=== PATIENT | female | born 1965 | race African-American/Black ===

== ENCOUNTER 2017-08-19 19:35 | Inpatient (IN) | payer SELFPAY ==
[~2017-08-19] VITALS: Ht 162.6 cm; Wt 95.1 kg
[~2017-08-19 19:35] MED LIST: AMLO10TA2 PO; MECL-87 PO; ONDA4TAB5
[2017-08-19] MEDS ORDERED: DILTIAZEM HCL 25 MG/5 ML VIAL IV ONE (20:00)
[2017-08-19 20:11] LABS: Basophils # (auto) 0.1 uL; Eosinophils # (auto) 0.3 uL; Eosinophils % (auto) 4.9 % (0.0-7.0); Hematocrit 35.6 % (36.0-46.0); Hemoglobin 11.6 g/dL (12.2-16.2); Lymphocytes # (auto) 2.1 uL; Lymphocytes % (auto) 35.8 % (10.0-50.0); Mean Corpuscular Hemoglobin 29.5 pg (28.0-32.0); Mean Corpuscular Hgb Conc. 32.5 g/dL (32.0-36.0); Mean Corpuscular Volume 90.7 fL (80.0-100.0); Monocytes # (auto) 0.9 uL; Monocytes % (auto) 15.2 % (0.0-12.0); Neutrophils # (auto) 2.5 uL; Neutrophils % (auto) 43.1 % (37.0-80.0); Nucleated Red Blood Cells % 0.1 %; Platelet Count (auto) 362 10^3/uL (140-450); Red Blood Cells 3.93 10^6/uL (4.0-5.20); White Blood Cell 5.8 10^3/uL (4.4-10.8)
[2017-08-19 20:36] LABS: Albumin 3.2 g/dL (3.4-5.0); BUN/Creatinine Ratio 16.5; Bilirubin, Total 0.5 mg/dL (0.2-1.0); Calcium 8.3 mg/dL (8.5-10.1); Magnesium 2.1 mg/dL (1.6-2.6); Potassium 3.7 mmol/L (3.5-5.1); Total Protein 8.5 g/dL (6.4-8.2)
[2017-08-19 20:50] LABS: Partial Thromboplastin Time 24.8 sec (22.64-33.71)
[2017-08-19 20:54] LABS: INR 0.99 (0.9-1.15); Prothrombin Time 10.8 sec (9.37-12.3)
[2017-08-19] MEDS ORDERED: LABETALOL HCL 200 MG TAB PO ONE (21:30)
[2017-08-19] MEDS ORDERED: SODIUM CHLORIDE 0.9% 1,000 ML IV ONE (21:30)
[2017-08-19] MEDS ORDERED: ENOXAPARIN SOD 40 MG/0.4 ML SYRINGE SC SCH (23:00)
[2017-08-19] MEDS ORDERED: HYDROcodone-ACET 5/325MG TAB PO PRN (23:00)
[2017-08-19] MEDS ORDERED: ONDANSETRON HCL 4 MG/2 ML VIAL IV PRN (23:00)
[2017-08-19] MEDS ORDERED: TEMAZEPAM 15 MG CAP PO PRN (23:00)
[2017-08-19] MEDS ORDERED: MORPHINE SULFATE 4 MG/ML SYR/VIAL IV PRN (23:00)
[2017-08-19] MEDS ORDERED: NITROGLYCERIN 0.4 MG SL TAB SL PRN (23:00)
[2017-08-19] MEDS ORDERED: DIGOXIN (250MCG/ML) 2 ML AMPULE IV ONE (23:15)
[2017-08-20] VITALS (19 sets, daily range): BP systolic 123–169; BP diastolic 68–101
[2017-08-20 01:38] LABS: Urine Bacteria NONE SEEN /hpf (None Seen); Urine Blood Negative /uL (Negative); Urine Specific Gravity 1.008 (1.001-1.035); Urine WBC 21 /hpf (0 - 5)
[2017-08-20 05:53] LABS: Basophils # (auto) 0 uL; Basophils % (auto) 0.5 % (0.0-2.0); Eosinophils # (auto) 0.3 uL; Eosinophils % (auto) 4.4 % (0.0-7.0); Hematocrit 33.6 % (36.0-46.0); Hemoglobin 10.7 g/dL (12.2-16.2); Lymphocytes # (auto) 2.9 uL; Lymphocytes % (auto) 41.5 % (10.0-50.0); Mean Corpuscular Hemoglobin 29.5 pg (28.0-32.0); Mean Corpuscular Hgb Conc. 31.7 g/dL (32.0-36.0); Mean Corpuscular Volume 93.1 fL (80.0-100.0); Monocytes # (auto) 0.9 uL; Monocytes % (auto) 13.4 % (0.0-12.0); Neutrophils # (auto) 2.8 uL; Neutrophils % (auto) 40.2 % (37.0-80.0); Nucleated Red Blood Cells % 0.1 %; Platelet Count (auto) 329 10^3/uL (140-450); Red Blood Cells 3.61 10^6/uL (4.0-5.20); Red Cell Distribution Width 17.8 % (11.8-14.3); White Blood Cell 6.9 10^3/uL (4.4-10.8)
[2017-08-20 06:15] LABS: Potassium 3.8 mmol/L (3.5-5.1)
[2017-08-20 06:21] LABS: Albumin 2.9 g/dL (3.4-5.0); BUN/Creatinine Ratio 18.8; Calcium 8.6 mg/dL (8.5-10.1)
[2017-08-20 06:23] LABS: Bilirubin, Total 0.5 mg/dL (0.2-1.0); Total Protein 7.6 g/dL (6.4-8.2)
[2017-08-20] MEDS ORDERED: ASPirin 81 mg TAB PO SCH (10:00)
[2017-08-20] MEDS ORDERED: DIGOXIN (250MCG/ML) 2 ML AMPULE IV ONE (11:30)
[2017-08-20] MEDS: FAMOTIDINE 20 MG TAB PO SCH ×2 (12:02→21:17)
[2017-08-20] MEDS: amLODIPine BESYLATE 5 MG TAB PO SCH (12:03)
[2017-08-20 12:33] LABS: Cholesterol 172 mg/dL (< 200); HDL Cholesterol 43 mg/dL (40-59); LDL Cholesterol 127 mg/dL (< 100); Triglycerides 112 mg/dL (< 150)
[2017-08-20] MEDS ORDERED: LIDOCAINE 1% (LOCAL ANESTH.) PF 5ml SDV ID ONE (13:15)
[2017-08-20] MEDS ORDERED: AMIODARONE HCL 900 MG in DEXTROSE 500 ML IV SCH ×2 (13:58→19:58)
[2017-08-20] MEDS ORDERED: AMIODARONE HCL 150 MG in D5W 5% 100 ML IV ONE (14:00)
[2017-08-20] MEDS: APIXABAN 5 MG TAB PO SCH ×2 (14:08→21:17)
[2017-08-20] MEDS: SODIUM CHLOR 0.9% PF (SALINE LOCK) 10ML VIAL IV SCH (22:00)
[2017-08-21] VITALS: BP 130/81
[2017-08-21 04:00] VITALS: BP 137/79
[2017-08-21] MEDS: SODIUM CHLOR 0.9% PF (SALINE LOCK) 10ML VIAL IV SCH ×2 (10:00→21:31)
[2017-08-21] MEDS ORDERED: APIXABAN 5 MG TAB PO SCH (10:00)
[2017-08-21] MEDS ORDERED: AMIODARONE HCL 200 MG TAB PO SCH (10:00)
[2017-08-21] MEDS: amLODIPine BESYLATE 5 MG TAB PO SCH (10:38)
[2017-08-21] MEDS: FAMOTIDINE 20 MG TAB PO SCH ×2 (10:38→21:31)
[2017-08-21] MEDS: APIXABAN 5 MG TAB PO SCH ×2 (10:38→21:31)
[2017-08-21] MEDS: ACETAMINOPHEN 325 MG TAB PO PRN ×2 (10:50→21:40)
[2017-08-21 11:50] VITALS: BP 170/84
[2017-08-21] MEDS ORDERED: POTASSIUM CHL 20 Meq TABLET PO ONE (12:30)
[2017-08-21 12:52] LABS: BUN/Creatinine Ratio 10.8; Calcium 8.4 mg/dL (8.5-10.1)
[2017-08-21 12:54] LABS: Alcohol, Urine < 3.0 mg/dL (0-5); Amphetamine Screen, Urine NEGATIVE (NEGATIVE); Barbiturate Scree,Urine NEGATIVE (NEGATIVE); Benzodiazephine Screen, Urine NEGATIVE (NEGATIVE); Cannabinoid Screen, Urine NEGATIVE (NEGATIVE); Cocaine Screen, Urine NEGATIVE (NEGATIVE); Opiate Scree,Urine NEGATIVE (NEGATIVE); Phencyclidine Screen, Urine NEGATIVE (NEGATIVE)
[2017-08-21 16:02] VITALS: BP 149/85
[2017-08-21 20:00] VITALS: BP 146/91
[2017-08-21] MEDS ORDERED: AMIODARONE HCL 900 MG in DEXTROSE 500 ML IV SCH (23:22)
[2017-08-22] VITALS: BP 123/73
[2017-08-22 03:51] VITALS: BP 146/86
[2017-08-22 05:04] LABS: Basophils # (auto) 0.1 uL; Basophils % (auto) 1.6 % (0.0-2.0); Eosinophils # (auto) 0.4 uL; Eosinophils % (auto) 5.4 % (0.0-7.0); Hematocrit 35.6 % (36.0-46.0); Hemoglobin 11.5 g/dL (12.2-16.2); Lymphocytes # (auto) 2.7 uL; Lymphocytes % (auto) 33.5 % (10.0-50.0); Mean Corpuscular Hemoglobin 29.5 pg (28.0-32.0); Mean Corpuscular Hgb Conc. 32.2 g/dL (32.0-36.0); Mean Corpuscular Volume 91.7 fL (80.0-100.0); Monocytes # (auto) 0.7 uL; Monocytes % (auto) 9.2 % (0.0-12.0); Neutrophils # (auto) 4.1 uL; Neutrophils % (auto) 50.3 % (37.0-80.0); Nucleated Red Blood Cells % 0.2 %; Platelet Count (auto) 305 10^3/uL (140-450); Red Blood Cells 3.88 10^6/uL (4.0-5.20); Red Cell Distribution Width 17.5 % (11.8-14.3); White Blood Cell 8.1 10^3/uL (4.4-10.8)
[2017-08-22 05:17] LABS: BUN/Creatinine Ratio 13.5; Calcium 8.3 mg/dL (8.5-10.1); Potassium 3.8 mmol/L (3.5-5.1)
[2017-08-22] MEDS: APIXABAN 5 MG TAB PO SCH (07:32)
[2017-08-22 08:00] VITALS: BP 168/94
[2017-08-22] MEDS ORDERED: MIDAZOLAM HCL 5 MG/ML-1ML VIAL IV PRN (08:00)
[2017-08-22] MEDS ORDERED: fentaNYL CITRATE 100 MCG/2 ML VL IV PRN (08:00)
[2017-08-22] MEDS: amLODIPine BESYLATE 5 MG TAB PO SCH (09:47)
[2017-08-22] MEDS: FAMOTIDINE 20 MG TAB PO SCH (09:47)
[2017-08-22] MEDS: SODIUM CHLOR 0.9% PF (SALINE LOCK) 10ML VIAL IV SCH (10:00)
[2017-08-22 12:00] VITALS: BP 137/59
[2017-08-22 15:54] VITALS: BP 145/94
[2017-08-22 16:00] VITALS: BP 145/94
== END 2017-08-22 16:25 | disposition home or self-care (01) | DRG 281 ==
LOC: ER 19:35 → EDBD 19:35 → EDSEX 19:35 → OVERFLOW 19:36 → DOU IN ICU 23:26
PROVIDERS: ADMIT Nurse Practitioner; ATTEND Family Medicine
DX: I21.A1 Myocardial infarction type 2 (principal); I48.92 Unspecified atrial flutter; I11.0 Hypertensive heart disease with heart failure; I27.20 Pulmonary hypertension, unspecified; E03.9 Hypothyroidism, unspecified; E05.90 Thyrotoxicosis, unspecified without thyrotoxic crisis or storm; I48.91 Unspecified atrial fibrillation; Z79.01 Long term (current) use of anticoagulants
CPT/HCPCS: 36415; 36569; 71045; 80048; 80053; 80061; 80307; 81001; 83735; 83880; 84443; 84484; 85025; 85610; 85730; 87081; 93005; 93306; 94761; 96361; 96372; 96374; 96375; J7060

== ENCOUNTER 2017-12-28 11:26 | Inpatient (IN) | payer MEDICAID ==
[~2017-12-28] VITALS: Ht 162.6 cm; Wt 90.8 kg
[~2017-12-28 11:26] MED LIST changes: +AMIO200T33 PO; -AMLO10TA2 PO; -MECL-87 PO; +MET25T PO; -ONDA4TAB5
[2017-12-28 12:35] LABS: Basophils # (auto) 0 uL; Eosinophils # (auto) 0.1 uL; Hemoglobin 9.9 g/dL (12.2-16.2); Nucleated Red Blood Cells % 0.2 %
[2017-12-28 12:38] LABS: Basophils % (auto) 0.6 % (0.0-2.0); Eosinophils % (auto) 0.9 % (0.0-7.0); Hematocrit 31.7 % (36.0-46.0); Lymphocytes # (auto) 1.4 uL; Lymphocytes % (auto) 18.6 % (10.0-50.0); Mean Corpuscular Hemoglobin 24.9 pg (28.0-32.0); Mean Corpuscular Hgb Conc. 31.2 g/dL (32.0-36.0); Mean Corpuscular Volume 79.9 fL (80.0-100.0); Monocytes # (auto) 0.8 uL; Monocytes % (auto) 11.5 % (0.0-12.0); Neutrophils % (auto) 68.4 % (37.0-80.0); Platelet Count (auto) 279 10^3/uL (140-450); Red Blood Cells 3.97 10^6/uL (4.0-5.20); Red Cell Distribution Width 19.2 % (11.8-14.3); White Blood Cell 7.3 10^3/uL (4.4-10.8)
[2017-12-28 12:42] LABS: Albumin 3.2 g/dL (3.4-5.0); BUN/Creatinine Ratio 10.2; Calcium 8.6 mg/dL (8.5-10.1); Potassium 4.3 mmol/L (3.5-5.1)
[2017-12-28 12:45] LABS: Bilirubin, Total 1.2 mg/dL (0.2-1.0); Total Protein 8.7 g/dL (6.4-8.2)
[2017-12-28 14:20] LABS: Magnesium 2.1 mg/dL (1.6-2.6)
[2017-12-28] MEDS ORDERED: ENOXAPARIN SOD 100 MG/1 ML SYRINGE SC ONE (15:00)
[2017-12-28 15:13] LABS: INR 1.09 (0.9-1.15); Partial Thromboplastin Time 24.7 sec (23.78-33.04); Prothrombin Time 11.6 sec (9.27-12.13)
[2017-12-28] MEDS ORDERED: MORPHINE SULF INJ 2 MG/ML SYRINGE 1ML IV PRN ×2 (15:15)
[2017-12-28] MEDS ORDERED: LORazepam 0.5 MG TAB PO PRN (15:15)
[2017-12-28] MEDS ORDERED: TEMAZEPAM 15 MG CAP PO PRN (15:15)
[2017-12-28] MEDS ORDERED: PROMETHAZINE HCL 25 MG/ML 1ML IV PRN (15:15)
[2017-12-28] MEDS ORDERED: NITROGLYCERIN 0.4 MG SL TAB SL PRN (15:15)
[2017-12-28] MEDS: PANTOPRAZOLE 40 MG TAB PO SCH (15:28)
[2017-12-28] MEDS ORDERED: PNEUMOCOCCAL VACC POLYS 25 MCG/0.5 ML VIAL IM ONE (17:45)
[2017-12-28 21:21] LABS: Urine Bacteria NONE SEEN /hpf (None Seen); Urine Blood 3+ /uL (Negative); Urine Mucus FEW (None Seen); Urine Specific Gravity 1.021 (1.001-1.035); Urine WBC 6 /hpf (0 - 5)
[2017-12-28] MEDS: traMADol HCL 50 MG TAB PO PRN (21:29)
[2017-12-28] MEDS: ENOXAPARIN SOD 100 MG/1 ML SYRINGE SC SCH (21:29)
[2017-12-28 21:41] VITALS: BP 146/78
[2017-12-29] VITALS (27 sets, daily range): BP systolic 111–160; BP diastolic 62–87
[2017-12-29] MEDS: traMADol HCL 50 MG TAB PO PRN (04:29)
[2017-12-29 07:10] LABS: Basophils # (auto) 0 uL; Eosinophils # (auto) 0.1 uL; Lymphocytes # (auto) 2.1 uL; Monocytes % (auto) 13.9 % (0.0-12.0); Nucleated Red Blood Cells % 0.2 %; Red Blood Cells 3.81 10^6/uL (4.0-5.20)
[2017-12-29 07:14] LABS: Basophils % (auto) 0.7 % (0.0-2.0); Eosinophils % (auto) 1.5 % (0.0-7.0); Hematocrit 30.4 % (36.0-46.0); Hemoglobin 9.7 g/dL (12.2-16.2); Lymphocytes % (auto) 27.7 % (10.0-50.0); Mean Corpuscular Hemoglobin 25.5 pg (28.0-32.0); Mean Corpuscular Hgb Conc. 31.9 g/dL (32.0-36.0); Mean Corpuscular Volume 79.8 fL (80.0-100.0); Neutrophils # (auto) 4.2 uL; Neutrophils % (auto) 56.2 % (37.0-80.0); Platelet Count (auto) 261 10^3/uL (140-450); Red Cell Distribution Width 19.5 % (11.8-14.3); White Blood Cell 7.5 10^3/uL (4.4-10.8)
[2017-12-29 07:29] LABS: BUN/Creatinine Ratio 11.6; Bilirubin, Total 1.3 mg/dL (0.2-1.0); Calcium 8.4 mg/dL (8.5-10.1); Potassium 4.1 mmol/L (3.5-5.1); Total Protein 8.2 g/dL (6.4-8.2)
[2017-12-29] MEDS: PANTOPRAZOLE 40 MG TAB PO SCH (10:28)
[2017-12-29] MEDS: ENOXAPARIN SOD 100 MG/1 ML SYRINGE SC SCH (10:28)
[2017-12-29] MEDS ORDERED: HEPARIN SODIUM (PORCINE) 5000 UNITS/ML 1ML VIAL IV ONE (14:45)
[2017-12-29] MEDS ORDERED: IOHEXOL 350 MG/ML 100ML IJ ONE (14:57)
[2017-12-29] MEDS ORDERED: METOPROLOL TARTRATE 25 MG TAB PO SCH (15:00)
[2017-12-29] MEDS ORDERED: AMIODARONE HCL 200 MG TAB PO SCH (15:00)
[2017-12-29] MEDS ORDERED: AMIODARONE HCL 200 MG TAB PO ONE (15:15)
[2017-12-29] MEDS ORDERED: METOPROLOL TARTRATE 25 MG TAB PO ONE (15:15)
[2017-12-29 15:29] LABS: Eosinophils # (auto) 0.1 uL; Hemoglobin 9.6 g/dL (12.2-16.2); Lymphocytes % (auto) 26.8 % (10.0-50.0); Monocytes # (auto) 1.1 uL
[2017-12-29 15:33] LABS: Basophils # (auto) 0 uL; Basophils % (auto) 0.6 % (0.0-2.0); Eosinophils % (auto) 1.3 % (0.0-7.0); Hematocrit 29.8 % (36.0-46.0); Lymphocytes # (auto) 2.1 uL; Mean Corpuscular Hemoglobin 25.7 pg (28.0-32.0); Mean Corpuscular Hgb Conc. 32.3 g/dL (32.0-36.0); Mean Corpuscular Volume 79.7 fL (80.0-100.0); Monocytes % (auto) 14.1 % (0.0-12.0); Neutrophils # (auto) 4.4 uL; Neutrophils % (auto) 57.2 % (37.0-80.0); Nucleated Red Blood Cells % 0.5 %; Platelet Count (auto) 290 10^3/uL (140-450); Red Blood Cells 3.75 10^6/uL (4.0-5.20); Red Cell Distribution Width 19.3 % (11.8-14.3); White Blood Cell 7.7 10^3/uL (4.4-10.8)
[2017-12-29] MEDS: HEPARIN DRIP/D5W 100UNITS/ML 250 ML IV SCH (15:33)
[2017-12-29 15:41] LABS: INR 1.07 (0.9-1.15); Partial Thromboplastin Time 30.6 sec (23.78-33.04); Prothrombin Time 11.4 sec (9.27-12.13)
[2017-12-29] MEDS ORDERED: WARFARIN SODIUM 5 MG TAB PO ONE (17:00)
[2017-12-29 19:22] LABS: Basophils # (auto) 0 uL; Basophils % (auto) 0.5 % (0.0-2.0); Eosinophils # (auto) 0.1 uL; Eosinophils % (auto) 1.5 % (0.0-7.0); Hemoglobin 9.2 g/dL (12.2-16.2); Lymphocytes # (auto) 2.1 uL; Lymphocytes % (auto) 24.4 % (10.0-50.0); Mean Corpuscular Hemoglobin 25.4 pg (28.0-32.0); Mean Corpuscular Hgb Conc. 31.7 g/dL (32.0-36.0); Mean Corpuscular Volume 80.3 fL (80.0-100.0); Monocytes % (auto) 12.1 % (0.0-12.0); Neutrophils # (auto) 5.3 uL; Neutrophils % (auto) 61.5 % (37.0-80.0); Nucleated Red Blood Cells % 0.2 %; Platelet Count (auto) 258 10^3/uL (140-450); Red Blood Cells 3.61 10^6/uL (4.0-5.20); Red Cell Distribution Width 19.1 % (11.8-14.3); White Blood Cell 8.5 10^3/uL (4.4-10.8)
[2017-12-29 22:37] LABS: INR 1.09 (0.9-1.15); Partial Thromboplastin Time 85.6 sec (23.78-33.04); Prothrombin Time 11.6 sec (9.27-12.13)
[2017-12-30] VITALS (44 sets, daily range): BP systolic 91–143; BP diastolic 46–77
[2017-12-30 03:57] LABS: Eosinophils # (auto) 0.1 uL; Eosinophils % (auto) 1.7 % (0.0-7.0); Hemoglobin 9.2 g/dL (12.2-16.2); Neutrophils # (auto) 4.3 uL; White Blood Cell 8.2 10^3/uL (4.4-10.8)
[2017-12-30 03:59] LABS: Basophils # (auto) 0.1 uL; Basophils % (auto) 0.7 % (0.0-2.0); Hematocrit 29.6 % (36.0-46.0); Lymphocytes # (auto) 2.7 uL; Lymphocytes % (auto) 32.8 % (10.0-50.0); Mean Corpuscular Hgb Conc. 31.2 g/dL (32.0-36.0); Monocytes % (auto) 11.9 % (0.0-12.0); Neutrophils % (auto) 52.9 % (37.0-80.0); Nucleated Red Blood Cells % 0.2 %; Platelet Count (auto) 280 10^3/uL (140-450); Red Cell Distribution Width 19.3 % (11.8-14.3)
[2017-12-30 04:14] LABS: INR 1.08 (0.9-1.15); Prothrombin Time 11.5 sec (9.27-12.13)
[2017-12-30 04:19] LABS: Partial Thromboplastin Time 103.2 sec (23.78-33.04)
[2017-12-30] MEDS: HEPARIN DRIP/D5W 100UNITS/ML 250 ML IV SCH (06:30)
[2017-12-30 09:51] LABS: INR 1.07 (0.9-1.15); Partial Thromboplastin Time 68.6 sec (23.78-33.04); Prothrombin Time 11.4 sec (9.27-12.13)
[2017-12-30] MEDS: PANTOPRAZOLE 40 MG TAB PO SCH (10:00)
[2017-12-30] MEDS: AMIODARONE HCL 200 MG TAB PO SCH ×2 (10:00→22:00)
[2017-12-30] MEDS: METOPROLOL TARTRATE 25 MG TAB PO SCH ×2 (10:00→22:00)
[2017-12-30] MEDS ORDERED: IODIXANOL 320MG/ML 100ML BTL IV ONE (10:50)
[2017-12-30] MEDS ORDERED: LIDOCAINE 2%HCL (LOCAL ANESTH.) INJ 10ml MDV ONE (10:50)
[2017-12-30] MEDS ORDERED: fentaNYL CITRATE 100 MCG/2 ML VL ONE (10:53)
[2017-12-30] MEDS ORDERED: MIDAZOLAM HCL 1MG/1ML-2 ML VIAL ONE (10:53)
[2017-12-30 15:28] LABS: Basophils # (auto) 0.1 uL; Lymphocytes # (auto) 1.8 uL
[2017-12-30 15:31] LABS: Basophils % (auto) 1.2 % (0.0-2.0); Eosinophils # (auto) 0.2 uL; Eosinophils % (auto) 2.5 % (0.0-7.0); Hematocrit 30.1 % (36.0-46.0); Hemoglobin 9.6 g/dL (12.2-16.2); Lymphocytes % (auto) 25.7 % (10.0-50.0); Mean Corpuscular Hemoglobin 25.8 pg (28.0-32.0); Mean Corpuscular Hgb Conc. 31.8 g/dL (32.0-36.0); Mean Corpuscular Volume 80.9 fL (80.0-100.0); Monocytes # (auto) 0.8 uL; Monocytes % (auto) 12.1 % (0.0-12.0); Neutrophils % (auto) 58.5 % (37.0-80.0); Nucleated Red Blood Cells % 0.3 %; Platelet Count (auto) 298 10^3/uL (140-450); Red Blood Cells 3.72 10^6/uL (4.0-5.20); White Blood Cell 6.8 10^3/uL (4.4-10.8)
[2017-12-30 15:47] LABS: INR 1.07 (0.9-1.15); Partial Thromboplastin Time 63.9 sec (23.78-33.04); Prothrombin Time 11.4 sec (9.27-12.13)
[2017-12-30 22:30] LABS: INR 1.07 (0.9-1.15); Partial Thromboplastin Time 63.2 sec (23.78-33.04); Prothrombin Time 11.4 sec (9.27-12.13)
[2017-12-30 22:36] LABS: Neutrophils # (auto) 4.3 uL; Nucleated Red Blood Cells % 0.3 %; Red Cell Distribution Width 19.4 % (11.8-14.3)
[2017-12-30 22:38] LABS: Basophils # (auto) 0 uL; Basophils % (auto) 0.7 % (0.0-2.0); Eosinophils # (auto) 0.2 uL; Eosinophils % (auto) 2.7 % (0.0-7.0); Hematocrit 28.5 % (36.0-46.0); Lymphocytes # (auto) 1.9 uL; Lymphocytes % (auto) 26.6 % (10.0-50.0); Mean Corpuscular Hemoglobin 25.5 pg (28.0-32.0); Mean Corpuscular Hgb Conc. 31.6 g/dL (32.0-36.0); Mean Corpuscular Volume 80.7 fL (80.0-100.0); Monocytes # (auto) 0.9 uL; Monocytes % (auto) 11.7 % (0.0-12.0); Neutrophils % (auto) 58.3 % (37.0-80.0); Platelet Count (auto) 302 10^3/uL (140-450); Red Blood Cells 3.53 10^6/uL (4.0-5.20); White Blood Cell 7.3 10^3/uL (4.4-10.8)
[2017-12-31] VITALS (23 sets, daily range): BP systolic 112–152; BP diastolic 64–81
[2017-12-31] MEDS: HEPARIN DRIP/D5W 100UNITS/ML 250 ML IV SCH ×2 (02:58→10:40)
[2017-12-31 03:40] LABS: Eosinophils # (auto) 0.2 uL; Hemoglobin 9.1 g/dL (12.2-16.2); Monocytes # (auto) 0.8 uL
[2017-12-31 03:43] LABS: Basophils # (auto) 0.1 uL; Basophils % (auto) 0.7 % (0.0-2.0); Eosinophils % (auto) 2.6 % (0.0-7.0); Hematocrit 28.8 % (36.0-46.0); Lymphocytes # (auto) 2.4 uL; Lymphocytes % (auto) 31.7 % (10.0-50.0); Mean Corpuscular Hemoglobin 25.2 pg (28.0-32.0); Mean Corpuscular Hgb Conc. 31.5 g/dL (32.0-36.0); Mean Corpuscular Volume 80.1 fL (80.0-100.0); Monocytes % (auto) 10.4 % (0.0-12.0); Neutrophils # (auto) 4.1 uL; Neutrophils % (auto) 54.6 % (37.0-80.0); Nucleated Red Blood Cells % 0.4 %; Platelet Count (auto) 297 10^3/uL (140-450); Red Blood Cells 3.59 10^6/uL (4.0-5.20); White Blood Cell 7.5 10^3/uL (4.4-10.8)
[2017-12-31 04:00] LABS: BUN/Creatinine Ratio 12.5; Calcium 8.2 mg/dL (8.5-10.1); Magnesium 2.1 mg/dL (1.6-2.6); Potassium 3.6 mmol/L (3.5-5.1)
[2017-12-31 04:13] LABS: % Iron Saturation 5.3 % (15-50)
[2017-12-31 08:43] LABS: INR 1.07 (0.9-1.15); Partial Thromboplastin Time 67.5 sec (23.78-33.04); Prothrombin Time 11.4 sec (9.27-12.13)
[2017-12-31] MEDS: METOPROLOL TARTRATE 25 MG TAB PO SCH ×2 (09:31→22:17)
[2017-12-31] MEDS: PANTOPRAZOLE 40 MG TAB PO SCH (09:31)
[2017-12-31] MEDS: AMIODARONE HCL 200 MG TAB PO SCH ×2 (09:32→22:18)
[2017-12-31] MEDS: SODIUM FERR GLUC 62.5MG/5ML 125 MG in SODIUM CHL 0.9% 100 ML IV SCH (11:47)
[2017-12-31 12:03] LABS: Basophils # (auto) 0.1 uL; Basophils % (auto) 0.9 % (0.0-2.0); Eosinophils # (auto) 0.2 uL; Eosinophils % (auto) 2.4 % (0.0-7.0); Hemoglobin 8.9 g/dL (12.2-16.2); Lymphocytes # (auto) 1.6 uL; Lymphocytes % (auto) 22.9 % (10.0-50.0); Mean Corpuscular Hemoglobin 25.6 pg (28.0-32.0); Mean Corpuscular Hgb Conc. 31.7 g/dL (32.0-36.0); Mean Corpuscular Volume 80.7 fL (80.0-100.0); Monocytes # (auto) 0.9 uL; Monocytes % (auto) 13.1 % (0.0-12.0); Neutrophils # (auto) 4.3 uL; Neutrophils % (auto) 60.7 % (37.0-80.0); Nucleated Red Blood Cells % 0.2 %; Platelet Count (auto) 287 10^3/uL (140-450); Red Blood Cells 3.47 10^6/uL (4.0-5.20); Red Cell Distribution Width 19.4 % (11.8-14.3); White Blood Cell 7.1 10^3/uL (4.4-10.8)
[2018-01-01] VITALS (18 sets, daily range): BP systolic 98–140; BP diastolic 56–77
[2018-01-01] MEDS: HEPARIN DRIP/D5W 100UNITS/ML 250 ML IV SCH ×3 (01:23→20:23)
[2018-01-01 03:44] LABS: Basophils # (auto) 0.1 uL; Eosinophils # (auto) 0.2 uL; Mean Corpuscular Hgb Conc. 31.2 g/dL (32.0-36.0); Red Blood Cells 3.48 10^6/uL (4.0-5.20)
[2018-01-01 03:46] LABS: Basophils % (auto) 0.9 % (0.0-2.0); Eosinophils % (auto) 2.6 % (0.0-7.0); Hemoglobin 8.7 g/dL (12.2-16.2); Lymphocytes # (auto) 2.4 uL; Lymphocytes % (auto) 32.2 % (10.0-50.0); Mean Corpuscular Hemoglobin 25.1 pg (28.0-32.0); Mean Corpuscular Volume 80.7 fL (80.0-100.0); Monocytes # (auto) 0.8 uL; Monocytes % (auto) 10.7 % (0.0-12.0); Neutrophils # (auto) 4.1 uL; Neutrophils % (auto) 53.6 % (37.0-80.0); Platelet Count (auto) 310 10^3/uL (140-450); Red Cell Distribution Width 19.8 % (11.8-14.3); White Blood Cell 7.6 10^3/uL (4.4-10.8)
[2018-01-01 04:06] LABS: INR 1.07 (0.9-1.15); Prothrombin Time 11.4 sec (9.27-12.13)
[2018-01-01 04:21] LABS: Partial Thromboplastin Time 77.7 sec (23.78-33.04)
[2018-01-01 09:47] LABS: INR 1.07 (0.9-1.15); Partial Thromboplastin Time 42.8 sec (23.78-33.04); Prothrombin Time 11.4 sec (9.27-12.13)
[2018-01-01] MEDS: AMIODARONE HCL 200 MG TAB PO SCH ×2 (10:06→21:55)
[2018-01-01] MEDS: PANTOPRAZOLE 40 MG TAB PO SCH (10:07)
[2018-01-01] MEDS: METOPROLOL TARTRATE 25 MG TAB PO SCH ×2 (10:07→21:55)
[2018-01-01] MEDS: SODIUM FERR GLUC 62.5MG/5ML 125 MG in SODIUM CHL 0.9% 100 ML IV SCH (13:34)
[2018-01-01 15:11] LABS: INR 1.07 (0.9-1.15); Prothrombin Time 11.4 sec (9.27-12.13)
[2018-01-01 15:21] LABS: Partial Thromboplastin Time 94.2 sec (23.78-33.04)
[2018-01-01 22:48] LABS: INR 1.05 (0.9-1.15); Partial Thromboplastin Time 31.3 sec (23.78-33.04); Prothrombin Time 11.2 sec (9.27-12.13)
[2018-01-01] MEDS ORDERED: HEPARIN SODIUM (PORCINE) 5000 UNITS/ML 1ML VIAL IV ONE (23:15)
[2018-01-02 05:00] VITALS: BP 105/67
[2018-01-02 05:54] LABS: Basophils # (auto) 0.1 uL; Eosinophils # (auto) 0.2 uL; Hemoglobin 8.9 g/dL (12.2-16.2); Monocytes # (auto) 0.8 uL; Red Cell Distribution Width 19.9 % (11.8-14.3)
[2018-01-02 05:57] LABS: Basophils % (auto) 0.8 % (0.0-2.0); Eosinophils % (auto) 2.6 % (0.0-7.0); Hematocrit 28.3 % (36.0-46.0); Lymphocytes % (auto) 25.8 % (10.0-50.0); Mean Corpuscular Hemoglobin 25.7 pg (28.0-32.0); Mean Corpuscular Hgb Conc. 31.4 g/dL (32.0-36.0); Mean Corpuscular Volume 81.7 fL (80.0-100.0); Monocytes % (auto) 10.7 % (0.0-12.0); Neutrophils # (auto) 4.6 uL; Neutrophils % (auto) 60.1 % (37.0-80.0); Nucleated Red Blood Cells % 2.5 %; Platelet Count (auto) 320 10^3/uL (140-450); Red Blood Cells 3.46 10^6/uL (4.0-5.20); White Blood Cell 7.7 10^3/uL (4.4-10.8)
[2018-01-02 06:22] LABS: INR 1.08 (0.9-1.15); Prothrombin Time 11.5 sec (9.27-12.13)
[2018-01-02 06:26] LABS: Partial Thromboplastin Time 107.8 sec (23.78-33.04)
[2018-01-02 08:00] VITALS: BP 108/65
[2018-01-02] MEDS: PANTOPRAZOLE 40 MG TAB PO SCH (09:15)
[2018-01-02] MEDS: AMIODARONE HCL 200 MG TAB PO SCH ×2 (10:00→21:36)
[2018-01-02] MEDS: METOPROLOL TARTRATE 25 MG TAB PO SCH ×2 (10:00→21:36)
[2018-01-02 12:00] VITALS: BP 101/61
[2018-01-02 12:44] LABS: INR 1.08 (0.9-1.15); Prothrombin Time 11.5 sec (9.27-12.13)
[2018-01-02] MEDS: SODIUM FERR GLUC 62.5MG/5ML 125 MG in SODIUM CHL 0.9% 100 ML IV SCH (13:57)
[2018-01-02 16:00] VITALS: BP 118/62
[2018-01-02] MEDS ORDERED: WARFARIN SODIUM 2.5 MG TAB PO ONE (17:00)
[2018-01-02 22:00] VITALS: BP 109/60
[2018-01-03 04:43] VITALS: BP 106/60
[2018-01-03 07:38] LABS: Basophils # (auto) 0 uL; Hematocrit 27.1 % (36.0-46.0); Lymphocytes # (auto) 1.2 uL; Mean Corpuscular Volume 81.7 fL (80.0-100.0); Neutrophils # (auto) 5.2 uL; Neutrophils % (auto) 70.4 % (37.0-80.0); Red Blood Cells 3.32 10^6/uL (4.0-5.20); Red Cell Distribution Width 19.2 % (11.8-14.3); White Blood Cell 7.4 10^3/uL (4.4-10.8)
[2018-01-03 07:40] LABS: Basophils % (auto) 0.7 % (0.0-2.0); Eosinophils # (auto) 0.1 uL; Eosinophils % (auto) 1.7 % (0.0-7.0); Hemoglobin 8.8 g/dL (12.2-16.2); Lymphocytes % (auto) 15.8 % (10.0-50.0); Mean Corpuscular Hemoglobin 26.4 pg (28.0-32.0); Mean Corpuscular Hgb Conc. 32.3 g/dL (32.0-36.0); Monocytes # (auto) 0.8 uL; Monocytes % (auto) 11.4 % (0.0-12.0); Platelet Count (auto) 308 10^3/uL (140-450)
[2018-01-03 07:51] LABS: INR 1.07 (0.9-1.15); Prothrombin Time 11.4 sec (9.27-12.13)
[2018-01-03 07:58] LABS: BUN/Creatinine Ratio 9.5; Calcium 8.2 mg/dL (8.5-10.1); Magnesium 2.5 mg/dL (1.6-2.6)
[2018-01-03] MEDS: traMADol HCL 50 MG TAB PO PRN (08:30)
[2018-01-03 09:00] VITALS: BP 117/65
[2018-01-03] MEDS: PANTOPRAZOLE 40 MG TAB PO SCH (09:43)
[2018-01-03] MEDS: AMIODARONE HCL 200 MG TAB PO SCH ×2 (09:43→21:39)
[2018-01-03] MEDS: METOPROLOL TARTRATE 25 MG TAB PO SCH ×2 (09:46→21:39)
[2018-01-03 13:40] VITALS: BP 143/78
[2018-01-03] MEDS: SODIUM FERR GLUC 62.5MG/5ML 125 MG in SODIUM CHL 0.9% 100 ML IV SCH (14:32)
[2018-01-03 17:00] VITALS: BP 130/78
[2018-01-03] MEDS ORDERED: WARFARIN SODIUM 2.5 MG TAB PO ONE (17:00)
[2018-01-03] MEDS: ACETAMINOPHEN 500 MG TAB PO PRN (21:45)
[2018-01-03 22:00] VITALS: BP 127/77
[2018-01-04 05:00] VITALS: BP 109/52
[2018-01-04 08:00] VITALS: BP 104/48
[2018-01-04 08:00] LABS: Basophils # (auto) 0.1 uL; Eosinophils # (auto) 0.1 uL; Nucleated Red Blood Cells % 1.6 %
[2018-01-04 08:03] LABS: Basophils % (auto) 0.8 % (0.0-2.0); Eosinophils % (auto) 1.5 % (0.0-7.0); Hematocrit 27.4 % (36.0-46.0); Hemoglobin 8.5 g/dL (12.2-16.2); Lymphocytes # (auto) 1.4 uL; Lymphocytes % (auto) 19.5 % (10.0-50.0); Mean Corpuscular Hemoglobin 25.7 pg (28.0-32.0); Mean Corpuscular Hgb Conc. 31.1 g/dL (32.0-36.0); Mean Corpuscular Volume 82.8 fL (80.0-100.0); Monocytes # (auto) 1.2 uL; Monocytes % (auto) 16.8 % (0.0-12.0); Neutrophils # (auto) 4.5 uL; Neutrophils % (auto) 61.4 % (37.0-80.0); Platelet Count (auto) 289 10^3/uL (140-450); Red Blood Cells 3.31 10^6/uL (4.0-5.20); White Blood Cell 7.4 10^3/uL (4.4-10.8)
[2018-01-04 08:06] LABS: INR 1.3 (0.9-1.15); Prothrombin Time 13.7 sec (9.27-12.13)
[2018-01-04] MEDS: ACETAMINOPHEN 500 MG TAB PO PRN (08:20)
[2018-01-04] MEDS: PANTOPRAZOLE 40 MG TAB PO SCH (10:00)
[2018-01-04] MEDS: METOPROLOL TARTRATE 25 MG TAB PO SCH ×2 (10:44→22:56)
[2018-01-04] MEDS: AMIODARONE HCL 200 MG TAB PO SCH ×2 (10:44→22:56)
[2018-01-04] MEDS: traMADol HCL 50 MG TAB PO PRN (10:50)
[2018-01-04] MEDS ORDERED: HEPARIN DRIP/D5W 100UNITS/ML 250 ML IV SCH ×2 (12:30→19:15)
[2018-01-04 12:34] VITALS: BP 114/65
[2018-01-04] MEDS: SODIUM FERR GLUC 62.5MG/5ML 125 MG in SODIUM CHL 0.9% 100 ML IV SCH (13:16)
[2018-01-04 14:04] LABS: INR 1.49 (0.9-1.15); Prothrombin Time 15.6 sec (9.27-12.13)
[2018-01-04 16:37] VITALS: BP 117/76
[2018-01-04] MEDS ORDERED: WARFARIN SODIUM 2.5 MG TAB PO ONE (17:00)
[2018-01-04 18:26] LABS: INR 1.56 (0.9-1.15); Prothrombin Time 16.3 sec (9.27-12.13)
[2018-01-04 18:37] LABS: Partial Thromboplastin Time 79.4 sec (23.78-33.04)
[2018-01-04 22:00] VITALS: BP 124/68
[2018-01-05 05:00] VITALS: BP 119/68
[2018-01-05 05:56] LABS: Eosinophils # (auto) 0.1 uL; Hemoglobin 8.9 g/dL (12.2-16.2); Neutrophils # (auto) 6.3 uL
[2018-01-05 05:57] LABS: Basophils # (auto) 0.1 uL; Basophils % (auto) 0.5 % (0.0-2.0); Eosinophils % (auto) 0.9 % (0.0-7.0); Hematocrit 28.1 % (36.0-46.0); Lymphocytes # (auto) 1.8 uL; Lymphocytes % (auto) 19.1 % (10.0-50.0); Mean Corpuscular Hemoglobin 26.8 pg (28.0-32.0); Mean Corpuscular Hgb Conc. 31.7 g/dL (32.0-36.0); Mean Corpuscular Volume 84.6 fL (80.0-100.0); Monocytes # (auto) 1.3 uL; Monocytes % (auto) 13.8 % (0.0-12.0); Neutrophils % (auto) 65.7 % (37.0-80.0); Nucleated Red Blood Cells % 1.5 %; Platelet Count (auto) 282 10^3/uL (140-450); Red Blood Cells 3.33 10^6/uL (4.0-5.20); White Blood Cell 9.7 10^3/uL (4.4-10.8)
[2018-01-05 06:02] LABS: Red Cell Distribution Width 19.9 % (11.8-14.3)
[2018-01-05 06:07] LABS: BUN/Creatinine Ratio 10.5; Calcium 8.1 mg/dL (8.5-10.1); Magnesium 2.6 mg/dL (1.6-2.6); Potassium 4.1 mmol/L (3.5-5.1)
[2018-01-05] MEDS: traMADol HCL 50 MG TAB PO PRN ×2 (07:57→17:19)
[2018-01-05 09:09] VITALS: BP 101/53
[2018-01-05] MEDS: METOPROLOL TARTRATE 25 MG TAB PO SCH ×2 (09:39→22:39)
[2018-01-05] MEDS: AMIODARONE HCL 200 MG TAB PO SCH ×2 (09:40→22:38)
[2018-01-05] MEDS: PANTOPRAZOLE 40 MG TAB PO SCH (09:40)
[2018-01-05 10:41] LABS: INR 2.15 (0.9-1.15)
[2018-01-05 10:43] LABS: Partial Thromboplastin Time 75.9 sec (23.78-33.04)
[2018-01-05] MEDS: SODIUM FERR GLUC 62.5MG/5ML 125 MG in SODIUM CHL 0.9% 100 ML IV SCH (12:30)
[2018-01-05 12:57] VITALS: BP 126/73
[2018-01-05 16:23] LABS: INR 2.22 (0.9-1.15); Partial Thromboplastin Time 44.1 sec (23.78-33.04); Prothrombin Time 22.7 sec (9.27-12.13)
[2018-01-05] MEDS ORDERED: WARFARIN SODIUM 2 MG TAB PO ONE (17:00)
[2018-01-05 17:18] VITALS: BP 136/81
[2018-01-05 22:00] VITALS: BP 115/64
[2018-01-05] MEDS: ACETAMINOPHEN 500 MG TAB PO PRN (23:16)
[2018-01-06 05:00] VITALS: BP 104/48
[2018-01-06 07:27] LABS: Basophils # (auto) 0 uL; Basophils % (auto) 0.5 % (0.0-2.0); Eosinophils # (auto) 0.1 uL; Hematocrit 28.9 % (36.0-46.0); Monocytes # (auto) 1.2 uL
[2018-01-06 07:30] LABS: Eosinophils % (auto) 1.2 % (0.0-7.0); Hemoglobin 9.2 g/dL (12.2-16.2); Lymphocytes # (auto) 2.2 uL; Lymphocytes % (auto) 23.6 % (10.0-50.0); Mean Corpuscular Hgb Conc. 31.7 g/dL (32.0-36.0); Mean Corpuscular Volume 85.4 fL (80.0-100.0); Monocytes % (auto) 12.7 % (0.0-12.0); Neutrophils # (auto) 5.7 uL; Platelet Count (auto) 311 10^3/uL (140-450); Red Blood Cells 3.38 10^6/uL (4.0-5.20); White Blood Cell 9.3 10^3/uL (4.4-10.8)
[2018-01-06 07:36] LABS: INR 2.45 (0.9-1.15); Partial Thromboplastin Time 36.2 sec (23.78-33.04); Prothrombin Time 24.9 sec (9.27-12.13)
[2018-01-06 07:37] LABS: BUN/Creatinine Ratio 8.3; Calcium 8.5 mg/dL (8.5-10.1); Magnesium 2.8 mg/dL (1.6-2.6); Potassium 3.9 mmol/L (3.5-5.1)
[2018-01-06 08:01] LABS: Red Cell Distribution Width 20.4 % (11.8-14.3)
[2018-01-06] MEDS: traMADol HCL 50 MG TAB PO PRN (08:43)
[2018-01-06 09:49] VITALS: BP 108/66
[2018-01-06] MEDS: AMIODARONE HCL 200 MG TAB PO SCH (09:54)
[2018-01-06] MEDS: METOPROLOL TARTRATE 25 MG TAB PO SCH (09:54)
[2018-01-06] MEDS: PANTOPRAZOLE 40 MG TAB PO SCH (09:54)
[2018-01-06] MEDS: SODIUM FERR GLUC 62.5MG/5ML 125 MG in SODIUM CHL 0.9% 100 ML IV SCH (11:46)
[2018-01-06 13:00] VITALS: BP 98/51
[2018-01-06 14:28] VITALS: BP 98/51
[2018-01-06] MEDS ORDERED: WARFARIN SODIUM 2 MG TAB PO ONE (17:00)
== END 2018-01-06 16:50 | disposition home health service (06) | DRG 197 ==
LOC: ER 11:26 → TELE 11:27 → TELE-WESTW 17:09 → ICU WEST 12-29 16:48 → WEST WING 01-01 17:42 → TELE-WESTW 01-01 18:43
PROVIDERS: ADMIT Internal Medicine; ATTEND Internal Medicine
PROC: 06H03DZ Insertion of Intraluminal Device into Inferior Vena Cava, Percutaneous Approach (ICD-10-PCS; principal; 2017-12-30)
DX: I82.401 Acute embolism and thrombosis of unspecified deep veins of right lower extremity (principal); I26.99 Other pulmonary embolism without acute cor pulmonale; I27.21 Secondary pulmonary arterial hypertension; I48.0 Paroxysmal atrial fibrillation; I10 Essential (primary) hypertension; D25.9 Leiomyoma of uterus, unspecified; J98.11 Atelectasis; D50.9 Iron deficiency anemia, unspecified; E03.9 Hypothyroidism, unspecified; I48.2 Chronic atrial fibrillation; Z79.01 Long term (current) use of anticoagulants; Z79.899 Other long term (current) drug therapy; Z80.1 Family history of malignant neoplasm of trachea, bronchus and lung; Z82.49 Family history of ischemic heart disease and other diseases of the circulatory system; I51.89 Other ill-defined heart diseases; Z28.21 Immunization not carried out because of patient refusal
CPT/HCPCS: 36415; 37191; 37619; 71045; 71275; 76000; 76856; 76937; 80048; 80053; 80061; 81001; 81241; 83540; 83550; 83735; 83880; 84443; 84484; 84702; 85025; 85302; 85305; 85306; 85610; 85613; 85670; 85705; 85730; 85732; 86850; 86900; 86901; 86920; 93306; 93971; 96372; 99152; A6257; J2001; J2250; Q9967